=== PATIENT | female | born 1960 | race Caucasian/White ===

== ENCOUNTER → 2017-06-25 16:41 | Outpatient (CLI) | payer OTHER, SELFPAY ==
--- NOTE | 2017-06-25 16:46 | RAD_ITS ---
STUDY: X-RAY CHEST REASON FOR EXAM: Female, 57 years old. Shortness of breath TECHNIQUE: 2 views COMPARISON: None. FINDINGS: The lungs are clear and expanded. There is no demonstrated pleural abnormality. Normal size heart. Normal mediastinum and dave. Normal visualized pulmonary arteries. Normal visualized aortic arch and descending thoracic aorta. Mild degenerative changes of the thoracic and upper lumbar cervical spine remains. Plates and screws are in the lower cervical spine. Normal visualized ribs, clavicles, and shoulders. There is no demonstrated abnormality of the visualized soft tissue structures of the upper abdomen. RAD/Chest PA and Lateral IMPRESSION: No acute findings in the lungs Electronically Signed: Julian Guzman, at 1:46 EDT Tel , Service support ,
== END ==
PROVIDERS: Family Provider Family Medicine; PCP Family Medicine; Visit Provider Family Medicine
DX: R06.02 Shortness of breath (principal)
CPT/HCPCS: 71046

== ENCOUNTER → 2019-05-01 09:20 | Outpatient (CLI) | payer OTHER, SELFPAY ==
[2019-05-01 10:52] LABS: Anion Gap 5 (5-15); BUN 6 mg/dL (7-18); BUN/Creat Ratio 7.6 RATIO (10-20); Calcium,Total 8.6 mg/dL (8.5-10.1); Chloride 106 mmol/L (98-107); Cholesterol 100 mg/dL (200); Creatinine, Serum 0.79 mg/dL (0.55-1.02); EST Glomerular Filtration Rate 79 mL/min (>60); Est Glom Filt Rate - Afr Amer 96 mL/min (>60); Glucose 70 mg/dL (74-106); High Density Lipoprotein 68 mg/dL; Potassium 3.6 mmol/L (3.5-5.1); Sodium Level 142 mmol/L (136-145); Triglycerides 60 mg/dL; Very Low Density Lipoprotein 12 mg/dL (5-40)
[2019-05-01 10:56] LABS: Vitamin D,25 Hydroxy 13.5 ng/mL (29.95-100.01)
== END ==
PROVIDERS: PCP Family Medicine; Referring Provider Family Medicine; Visit Provider Family Medicine
DX: Z00.00 Encounter for general adult medical examination without abnormal findings (principal)
CPT/HCPCS: 36415; 80048; 80061; 82306

== ENCOUNTER → 2019-06-18 16:46 | Outpatient (CLI) | payer OTHER, SELFPAY ==
--- NOTE | 2019-06-18 16:56 | US_ITS ---
STUDY: SUPERFICIAL ULTRASOUND - LEFT BUTTOCK REGION REASON FOR EXAM: Female, 59 years old. LT BUTTOCK LUMP/MASS X 2 WEEKS WITH PAIN TECHNIQUE: A superficial ultrasound was performed with real-time and static medeiros-scale imaging. COMPARISON: None. FINDINGS: Numerous images of the left buttock region were acquired. The subcutaneous and intramuscular tissues are diffusely edematous and appears with increased echogenicity on this study. In the superficial muscle fibers of the left buttock/junction with the subcutaneous fat and ill-defined somewhat rounded complex region is present measuring 3.2 x 2.9 x 1.6 cm. This focus is somewhat hypoechoic to the surrounding parenchyma. This is compatible with a complex abscess or intramuscular edema with swelling. The process does not appear to be liquefied on this exam. A small sinus tract is seen leading from the subcutaneous fat into the collection. US/Ext Non Vasc Limited/Soft Tiss IMPRESSION: 1. 3.2 x 2.9 x 1.6 cm complex abscess of the subcutaneous/intramuscular junction of the left buttock. Electronically Signed: Lane Avila MD at 18:04 EST , Service support ,
== END ==
PROVIDERS: PCP Family Medicine; Referring Provider Family Medicine; Visit Provider Family Medicine
DX: R22.9 Localized swelling, mass and lump, unspecified (principal)
CPT/HCPCS: 76882

== ENCOUNTER → 2019-06-19 08:22 | Outpatient (CLI) | payer OTHER, SELFPAY ==
--- NOTE | 2019-06-19 08:23 | CT_ITS ---
STUDY: CT PELVIS WITH CONTRAST REASON FOR EXAM: Female, 59 years old. LEFT BUTTOCK ABSCESS/MASS ON US. Prev tubal ligation. RADIATION DOSAGE (If Supplied By Facility): CTDIvol = ( 9.97 ) mGy, DLP = ( 224.33 ) mGycm TECHNIQUE: Transaxial imaging of the pelvis was performed with oral contrast. Oral and amp; IV Gastrografin and amp; 100mL Isovue-300 was administered intravenously. Individualized dose optimization techniques were used for this CT. COMPARISON: None. FINDINGS: The visualized liver, gallbladder, and head of the pancreas are unremarkable. The common bile duct measures up to 8.7 mm diameter, but notably tapers as it passes through the pancreatic head. The central pancreatic duct diameter is 2.9 mm. The adrenal glands are not included in the [id number]. The visualized lower poles of the bilateral kidneys are unremarkable. Nearly empty urinary bladder. Normal visualized small intestine. Normal caliber of the visualized colon. There is an irregular, almost C-shaped marginally enhancing 6.7 x 1.35 x 3.1 cm area of inflammatory change in the medial tissues of the left buttock, passing along the medial margin of the gluteus muscles and extending along the lateral margin of the left pubococcygeus. This contains minimal fluid and gas in its anteriorly. This may or may not communicate with a second C-shaped, rim-enhancing 4.65 x 5.85 x 1.5 cm gas and fluid collection consistent with an abscess in the left perirectal soft tissues. There is some associated thickening of the left lateral rectal wall. The superior extent of this abscess is a gas-filled area along the posterior inferior margin of the thick-walled distal sigmoid colon. There are small gas bubbles in the tissues along the posterior margin of the mid to distal sigmoid, suggesting diverticula. Well defined 2.9 x 5.95 x 2.5 cm fluid-filled structure in the left posterior pelvis extending above the level of the sigmoid does not show rim enhancement or contain gas, and may be an ovarian cyst or other retroperitoneal fluid collection such as a lymphocele or seroma There is no pelvic lymphadenopathy. There is atrophy of the uterus. Normal visualized pelvic arteries. Normal anterior abdominal wall. There are diffuse degenerative changes of the visualized lumbar spine, including virtual osseous fusion at the L5-S1 endplates and facet joints. CT/Pelvis WITH IV Contrast IMPRESSION: 1. Sigmoid diverticulosis with probable acute diverticulitis. Extending from the posterior margin of the sigmoid colon along the left side of the mildly thick-walled rectum. There is a C-shaped, rim-enhancing 5.5 cm abscess. This may communicate with an irregular shaped, elongated 6.7 cm rim-enhancing area of inflammatory change with minimal fluid extending along the lateral margin of the left pubococcygeus and medial margin of left gluteus muscle into the deep subcutaneous tissues of the medial left buttock. 2. Well-defined additional 5 cm fluid-filled structure in the left posterior pelvis extending above the level of the sigmoid does not show rim enhancement nor contain gas, and may be a cyst of ovarian origin versus other fluid collection, such as a seroma or lymphocele. Further extension of the abscess is not excluded, however. 2. Multilevel degenerative changes of the spine. Electronically Signed: Philippe Cleaning MD at 10:05 EST , Service support ,
== END ==
PROVIDERS: PCP Family Medicine; Referring Provider Surgery; Visit Provider Surgery
DX: L02.31 Cutaneous abscess of buttock (principal)
CPT/HCPCS: 72193; Q9967

== ENCOUNTER → 2019-06-20 09:13 | Outpatient (CLI) | payer OTHER, SELFPAY ==
[2019-06-20 08:48] VITALS: BMI 23.3
--- NOTE | 2019-06-20 09:14 | CT_ITS ---
STUDY: CT PELVIS WITH CONTRAST REASON FOR EXAM: Female, [address] PELVIS, LEFT HYDRONEPHROSIS -- RECTAL CONTRAST IMAGES ALSO INCLUDED RADIATION DOSAGE (If Supplied By Facility): CTDIvol = ( 15.41 ) mGy, DLP = ( 1250.85 ) mGycm TECHNIQUE: Transaxial imaging of the pelvis was performed without oral contrast. IV 100mL Isovue-300 was administered intravenously. Multiplanar coronal and sagittal images were reformatted. Individualized dose optimization techniques were used for this CT. COMPARISON: CT pelvis with oral and IV contrast June 19, 2019 FINDINGS: The liver is enlarged, inferior right lobe extending 7 cm below the level of the iliac crest. The patent portal vein diameter is 15 mm. Mildly distended gallbladder, with layering density that likely reflects vicarious excretion of previously injected IV contrast. The common bile duct diameter 7 mm. Normal right kidney. There is [id number] distention of the left upper urinary tract down to the low pelvis. The urinary bladder is opacified by excreted contrast, but nearly empty. There is atrophy of the uterus. Normal visualized small intestine. Normal caliber of the visualized colon. Again seen is an irregular, almost C-shaped marginally enhancing 6.7 x 1.35 x 3.1 cm area of inflammatory change in the medial tissues of the left buttock, passing along the medial margin of the gluteus muscles and along the lateral margin of the left pubococcygeus muscle. This contains minimal fluid and gas anteriorly. This may or may not communicate with a second C-shaped, rim-enhancing 4.65 x 5.85 x 1.5 cm abscess collection in the left perirectal soft tissues. The abscess is again seen along the thick-walled mid to distal sigmoid colon. There is sigmoid diverticulosis, the abscess likely reflecting pericolonic extension of a diverticular perforation. Well defined 2.9 x 5.95 x 2.5 cm fluid-filled structure without gas or peripheral enhancement seen just above the abscess in the left posterior pelvis, extending above the level of the sigmoid. This may be a separate structure, such as an ovarian cyst or other retroperitoneal fluid collection, likely a lymphocele or seroma. There is no pelvic lymphadenopathy. Normal visualized pelvic arteries. Normal anterior abdominal wall. There are diffuse degenerative changes of the visualized lumbar spine. CT/Pelvis WITH IV Contrast IMPRESSION: 1. Sigmoid diverticulosis with probable acute diverticulitis and perforation at the mid to distal sigmoid with an elongated, nearly C-shaped 5.85 cm abscess extending into the left perirectal soft tissues. No oral contrast is seen in the abscess. 2. The abscess may communicate with an irregular, C-shaped area of inflammatory change with minimal anterior fluid that extends along the lateral margin of the left pubococcygeus and medial margin of the left gluteus muscle into the deep subcutaneous tissues tissues of the medial left buttock. 3. Also again seen is a 5.95 cm fluid-filled structure of indeterminate etiology in the left posterior pelvis above the abscess. 4. There is mild to moderate left hydroureteronephrosis down to the level of pelvic abscess, likely reflecting some spasm or other cause of partial obstruction at the distal ureter. 5. Hepatomegaly, the right lobe extending 7 cm below the level of the iliac crests. Electronically Signed: Philippe Cleaning MD at 10:29 EST , Service support ,
[2019-06-20 10:54] LABS: Absolute Lymphocyte Count 1.19 X10^3/uL (0.83-4.51); Absolute Neutrophil Count 8.7 X10^3/uL (2.0-7.7); Basophil# 0.05 X10^3/uL; Basophil% 0.5 % (0-1); Eosinophils% 0.9 % (0-5); Hematocrit 51.1 % (37-47); Hemoglobin 16.7 g/dL (12.0-15.0); Lymphocyte # 1.19 X10^3/ul (4.0); Lymphocyte % 11.2 % (19-41); Mean Corp Hgb Conc 32.7 g/dL (32-36); Mean Corpuscular Hgb 35.4 pg (27.0-32.0); Mean Corpuscular Volume 108.3 fL (81-99); Mean Platelet Vol. 8.8 fl (6.2-12.0); Monocyte# 0.62 X10^3/uL; Monocyte% 5.8 % (0-10); NRBC Flagged by Analyzer 0 % (0-5); Neutrophil # 8.68 X10^3/uL (2.7-7.7); Neutrophil % 81.3 % (47-70); Platelet Count 447 K/mm3 (150-450); RBC Distribution Width CV 14.2 % (11.6-14.6); Red Blood Count 4.72 M/mm3 (4.2-5.4); White Blood Count 10.7 K/mm3 (4.4-11.0)
== END ==
PROVIDERS: PCP Family Medicine; Referring Provider Surgery; Visit Provider Surgery
DX: N73.9 Female pelvic inflammatory disease, unspecified (principal)
CPT/HCPCS: 36415; 72193; 85025; Q9967

== ENCOUNTER → 2019-06-30 07:57 | Outpatient (CLI) | payer OTHER, SELFPAY ==
[2019-06-20 08:48] VITALS: BMI 23.3
--- NOTE | 2019-06-30 07:58 | CT_ITS ---
STUDY: CT ABDOMEN AND PELVIS WITHOUT CONTRAST REASON FOR EXAM: Female, 59 years old. CHECK PELVIC ABSCESS DRAIN RADIATION DOSAGE (If Supplied By Facility): CTDIvol = ( 6.07 ) mGy, DLP = ( 257.88 ) mGycm TECHNIQUE: Transaxial images were obtained from the dome of the diaphragm to the symphysis pubis without oral contrast, and without intravenous contrast. Sagittal and coronal images were reconstructed. Individualized dose optimization techniques were used for this CT. COMPARISON: Comparison is made with prior CT scan the pelvis dated June 20, 2019. FINDINGS: The visualized lung bases are unremarkable. The visualized portions of the heart are within normal limits. Normal liver. Normal gallbladder and extrahepatic biliary system. Normal spleen. Normal pancreas. Normal bilateral adrenal glands. Normal right kidney. Normal left kidney. Normal visualized stomach. Normal small intestine. There are multiple colonic diverticula consistent with diverticulosis. The appendix is visualized and appears normal. There is scattered atherosclerotic calcification of the abdominal aorta, without a demonstrated aneurysm. Normal inferior vena cava. Normal retroperitoneum. Normal urinary bladder. A drainage catheter is seen in the left side of the pelvis. The previously seen fluid collection anterior to the rectum as well as the fluid collection surrounding the sigmoid colon has resolved. Normal abdominal wall. There are diffuse degenerative changes of the visualized lumbar spine. CT/Abdomen/Pelvis without Cont IMPRESSION: Successful percutaneous drainage of the pelvic fluid collections as described. Persistent sigmoid diverticulosis. Electronically Signed: Claudio El, at 8:58 EDT , Service support ,
== END ==
PROVIDERS: PCP Family Medicine; Referring Provider Surgery; Visit Provider Surgery
DX: N73.9 Female pelvic inflammatory disease, unspecified (principal)
CPT/HCPCS: 74176

== ENCOUNTER → 2019-07-28 14:43 | Outpatient (CLI) | payer OTHER, SELFPAY ==
[2019-07-01 13:50] VITALS: BMI 23.3
--- NOTE | 2019-07-28 14:45 | CT_ITS ---
STUDY: CT ABDOMEN AND PELVIS WITH CONTRAST REASON FOR EXAM: Female, 59 years old. Rectal and pelvic pain, recent rectal abscess, RADIATION DOSAGE (If Supplied By Facility): CTDIvol = ( 10.85 ) mGy, DLP = ( 255 ) mGycm TECHNIQUE: Transaxial images were obtained from the dome of the diaphragm to the symphysis pubis with oral contrast. Oral and amp;amp; IV Rectal gastro and amp;amp; 75mL Isovue-370 was administered. Sagittal and coronal images were reconstructed. Individualized dose optimization techniques were used for this CT. COMPARISON: Comparison is made with prior examination dated June 30, 2019. FINDINGS: The visualized lung bases are unremarkable. The visualized portions of the heart are within normal limits. There is decreased attenuation of the liver consistent with steatosis. Hepatomegaly. Normal gallbladder and extrahepatic biliary system. Normal spleen. Normal pancreas. Normal bilateral adrenal glands. Normal right kidney. Normal left kidney. Normal visualized stomach. Normal small intestine. Large amount of fecal material is seen in the left colon. Scattered sigmoid diverticulosis. There now is evidence of increased markings in the surrounding perisigmoid fat suggestive of a mild degree of the diverticulitis. There is evidence of a 2.2 cm x 1.2 cm fluid collection along the medial mesenteric side of the sigmoid colon. A similar appearing fluid collection measuring 2.5 cm x 1.6 cm is seen in the prerectal space on the left side. Fluid as well as soft tissue density extends catheter down along the left pararectal wall into the soft tissues within the medial aspect of the left gluteus muscle. This extends to the overlying skin with thickening of the overlying skin on the left medial buttock. The appendix is visualized and appears normal. There is scattered atherosclerotic calcification of the abdominal aorta, without a demonstrated aneurysm. Normal inferior vena cava. Normal retroperitoneum. Normal urinary bladder. Normal abdominal wall. There are diffuse degenerative changes of the visualized lumbar spine. CT/Abdomen/Pelvis WITH Contrast IMPRESSION: The previously seen drainage catheter has been removed. 2. Fluid collections in the region of the sigmoid colon as well as the left perirectal space extending into the medial left gluteus muscle and overlying subcutaneous tissue with skin thickening as described. Mild degree of sigmoid diverticulitis. Large amount of fecal material is seen in the left hemicolon. Electronically Signed: Claudio El, at 15:52 EDT , Service support ,
[2019-07-28 15:05] LABS: CREATININE FINGERSTICK 0.9 mg/dL (0.55-1.02); EGFR FINGERSTICK > 60.0000 mL/min (>60)
== END ==
PROVIDERS: PCP Surgery; Referring Provider Surgery; Visit Provider Surgery
DX: N73.9 Female pelvic inflammatory disease, unspecified (principal)
CPT/HCPCS: 74177; Q9967; A4216

== ENCOUNTER 2022-08-08 11:13 | Emergency (ER) | payer OTHER, SELFPAY ==
[2022-08-08 11:13] VITALS: TEMP 35.9
[2022-08-08 11:14] VITALS: BP 105/90; BP 113/102; BP 137/93; BP 73/62; BP 79/66; BP 80/39; BP 86/39; PULSE 101; PULSE 102; PULSE 107; PULSE 131; PULSE 40; PULSE 46; PULSE 60; PULSE 63; PULSE 72; PULSE 80; PULSE 82; PULSE 84; PULSE 97; RESP 14; RESP 16; RESP 18; RESP 20; RESP 24; RESP 62; TEMP 35.5; O2SAT 68; O2SAT 73; O2SAT 78; O2SAT 81; O2SAT 83; O2SAT 93; O2SAT 95; O2SAT 96
--- NOTE | 2022-08-08 11:31 | EKG12_ITS ---
Test Reason : CODE Blood Pressure : / mmHG Vent. Rate : 078 BPM Atrial Rate : 000 BPM P-R Int : 000 ms QRS Dur : 134 ms QT Int : 340 ms P-R-T Axes : 000 244 085 degrees QTc Int : 387 ms Poor data quality, interpretation may be adversely affected Junctional rhythm Right bundle branch block Septal infarct Abnormal ECG Confirmed by SHERRI YAN, KLEVER ([id number]), assignment desk editor MAI WHITMAN ([id number]) on 08/10/2022 9:25:01 AM Referred By: GEORGE Confirmed By:KLEVER POLANCO MD
--- NOTE | 2022-08-08 11:50 | RAD_ITS ---
STUDY: X-RAY CHEST REASON FOR EXAM: Female, 62 years old. Dyspnea TECHNIQUE: Single AP portable view of the chest. COMPARISON: None. FINDINGS: An endotracheal tube is in situ. The tip is at 2.1 cm proximal to the monique. An orogastric tube is seen with the tip below the left hemidiaphragm. EKG electrodes are seen. Impression congestion and mild degree of CHF. There is no demonstrated pleural abnormality. There is mild cardiac enlargement. Normal mediastinum and dave. Normal visualized pulmonary arteries. Normal visualized aortic arch and descending thoracic aorta. There are degenerative changes of the visualized thoracic spine. Normal visualized ribs, clavicles, and shoulders. There is no demonstrated abnormality of the visualized soft tissue structures of the upper abdomen. RAD/Chest 1 View (Portable) IMPRESSION: The tip of the endotracheal tube is at 2.1 cm proximal to the monique. Mild cardiomegaly and the CHF. Electronically Signed: Claudio El MD at 12:19 EDT ,
--- NOTE | 2022-08-08 12:05 | EKG12_ITS ---
Test Reason : RE CHECK Blood Pressure : / mmHG Vent. Rate : 047 BPM Atrial Rate : 000 BPM P-R Int : 000 ms QRS Dur : 084 ms QT Int : 502 ms P-R-T Axes : 000 -63 020 degrees QTc Int : 444 ms Junctional rhythm Left axis deviation Low voltage QRS Septal infarct , age undetermined Abnormal ECG Confirmed by SHERRI YAN, KLEVER ([id number]), managing editor MAI WHITMAN ([id number]) on 08/10/2022 9:21:38 AM Referred By: Confirmed By:KLEVER POLANCO MD
[2022-08-08 12:22] LABS: Anion Gap 13 (5-15); BUN 8 mg/dL (7-18); BUN/Creat Ratio 8.7 RATIO (10-20); Calcium,Total 7.7 mg/dL (8.5-10.1); Chloride 106 mmol/L (98-107); Creatinine, Serum 0.92 mg/dL (0.55-1.02); EST Glomerular Filtration Rate 66 mL/min (>60); Est Glom Filt Rate - Afr Amer 79 mL/min (>60); Glucose 359 mg/dL (74-106); Potassium 2.6 mmol/L (3.5-5.1); Sodium Level 144 mmol/L (136-145)
--- NOTE | 2022-08-08 12:23 | ED.RN ---
FAMILY HAS MADE A DECISION TO STOP ALL MEDICATIONS , NO CPR TO BE RESUMED
[2022-08-08 12:30] VITALS: PULSE 51; RESP 14; RESP 22; O2SAT 77
--- NOTE | 2022-08-08 12:30 | EX.ED.CRITCA ---
HPI History of Present Illness Chief Complaint: CPR Informant: EMS Limited: coma Onset/Context/Timing Onset: Today Context: Sudden Onset Timing: Continuous Quality: Unresponsive Location: Generalized Narrative Narrative: Patient presents unresponsive. Patient apparently collapsed suddenly this morning. Family started CPR immediately. Family called EMS immediately. EMS took over CPR upon their arrival. EMS continued CPR. EMS defibrillated the patient multiple times as the patient was in ventricular fibrillation. EMS administered 9 doses of epinephrine, 1 dose of bicarb, and 2 doses of amiodarone. EMS intubated the patient with an endotracheal tube. Upon arrival to the emergency department, patient was still pulseless and unresponsive. [facility] Medical History (Updated 08/08/22 @ 14:[address] Bernardino Fulton, DO) Asthma Allergy/AdvReac Type Severity Reaction Status Date / Time Unable to Assess Allergy Verified 08/08/22 12:43 Surgical History History of colostomy reversal Hx of cervical spinal arthrodesis Hx of colostomy Social History Smoking Status: Current every day smoker tobacco type: cigarettes ROS ROS ED Review of Systems ROS Unobtainable: due to endotracheal tube, due to mental condition and due to mental status EXAM Physical Exam Const Vital Signs: 08/08/22 11:14 08/08/22 11:13 08/08/22 13:10 Temperature 96.6 F L Temperature [2] 96 F L Temperature Source Temporal Pulse Rate 46 L Pulse Rate [10] 101 H Pulse Rate [12] 80 Pulse Rate [14] 102 H Pulse Rate [15] 102 H Pulse Rate [19] 60 Pulse Rate [21] 63 Pulse Rate [23] 40 L Pulse Rate [25] 46 L Pulse Rate [2] 102 H Pulse Rate [3] 107 H Pulse Rate [4] 131 H Pulse Rate [5] 72 Pulse Rate [6] 97 Pulse Rate [7] 84 Pulse Rate [8] 80 Pulse Rate [9] 82 Respiratory Rate 14 Respiratory Rate [10] 16 Respiratory Rate [15] 20 H Respiratory Rate [20] 62 H Respiratory Rate [21] 14 Respiratory Rate [3] 24 H Respiratory Rate [5] 18 Respiratory Rate [6] 18 Respiratory Rate [7] 18 Respiratory Rate [8] 18 Respiratory Rate [9] 16 Respiratory Pattern Blood Pressure 76/48 L Blood Pressure [15] 79/66 L Blood Pressure [16] 73/62 L Blood Pressure [20] 105/90 H Blood Pressure [21] 137/93 H Blood Pressure [23] 80/39 L Blood Pressure [4] 113/102 H Blood Pressure [5] 113/102 H Blood Pressure [6] 86/39 L Blood Pressure [7] 86/39 L Blood Pressure [8] 86/39 L Blood Pressure [9] 86/39 L Blood Pressure Mean 57 Pulse Ox 83 91 Oxygen Delivery Method Room Air Oxygen Flow Rate (L/min) 15 Fraction of Inspired Oxygen (FIO2) 08/08/22 12:30 Temperature Temperature [2] Temperature Source Pulse Rate 51 L Pulse Rate [10] Pulse Rate [12] Pulse Rate [14] Pulse Rate [15] Pulse Rate [19] Pulse Rate [21] Pulse Rate [23] Pulse Rate [25] Pulse Rate [2] Pulse Rate [3] Pulse Rate [4] Pulse Rate [5] Pulse Rate [6] Pulse Rate [7] Pulse Rate [8] Pulse Rate [9] Respiratory Rate 22 H Respiratory Rate [10] Respiratory Rate [15] Respiratory Rate [20] Respiratory Rate [21] Respiratory Rate [3] Respiratory Rate [5] Respiratory Rate [6] Respiratory Rate [7] Respiratory Rate [8] Respiratory Rate [9] Respiratory Pattern Normal Blood Pressure Blood Pressure [15] Blood Pressure [16] Blood Pressure [20] Blood Pressure [21] Blood Pressure [23] Blood Pressure [4] Blood Pressure [5] Blood Pressure [6] Blood Pressure [7] Blood Pressure [8] Blood Pressure [9] Blood Pressure Mean Pulse Ox 77 Oxygen Delivery Method Oxygen Flow Rate (L/min) Fraction of Inspired Oxygen (FIO2) 100 Positive well developed General Appearance ED: well developed HEENT normocephalic and atraumatic Neck supple and no JVD Cardio regular rhythm Rate: tachycardic GI Inspection: abdominal distention Palpation: soft Neuro Sensorium / Orientation: lethargic and stuporous Skin General Skin Exam: Negative for jaundice Lesions: no lesions Rashes: no rashes MDM MDM MDM Narrative Medical decision making narrative: Differential diagnose includes cardiac dysrhythmia, cardiac ischemia, pulmonary embolism, hyperkalemia, cardiac tamponade, and electrolyte abnormality. EKG will be obtained to assess for cardiac dysrhythmia and cardiac ischemia. Chest x-ray will be obtained to assess for pneumonia. Basic metabolic profile will be obtained to assess for electrolyte abnormality and renal function. CBC will be obtained to assess for leukocytosis and anemia. PT with INR and PTT will be obtained to assess for coagulopathy. High-sensitivity troponin will be obtained to assess for cardiac ischemia. Family was brought into the bedside to help with relating the patient's wishes regarding ongoing CPR, ventilator, pressors, and antiarrhythmic medications. Family wanted to discuss this amongst themselves. After the family discussed this amongst themselves, they stated that the patient had a DNR papers signed at [facility] when she was admitted there. states that the patient did not want to be put on a ventilator and had a living will which stated this. states that the patient did not want any measures to prolong her life if her quality of life was not her normal quality of life. I did advise the family that if she were to survive the initial cardiac arrest, she would be admitted to the hospital on a ventilator with vasopressors and antiarrhythmics. I advised him that this would require a central line to be placed. I advised him of the risks associated with this.. At this point, family did not want any further interventions to be done. Family is agreeable to stopping the vasopressors and antiarrhythmics. Family will be brought to the bedside to be with the patient. Family wants the patient to be extubated. Patient will be extubated. Family will be at the bedside to be with the patient when she passes. Family is agreeable with this plan. History & Record Review Discussion w/independent historian: EMS personnel and Family Lab Data Attestation: I reviewed the patient's lab results. Lab results narrative: BMP was reviewed and revealed a potassium of 2.6. Glucose was elevated at 359. Labs: Laboratory Results - last 24 hr 08/08/22 08/08/22 08/08/22 11:15 11:15 11:15 WBC RBC Hgb Hct MCV MCH MCHC RDW Std Deviation RDW Coeff of Jai Plt Count MPV Neut % (Auto) PT 16.0 H INR 1.3 APTT 40.6 H Sodium 144 Potassium 2.6 L* Chloride 106 Carbon Dioxide 25.0 Anion Gap 13 BUN 8 Creatinine 0.92 Est GFR (MDRD) Af Amer 79 Est GFR (MDRD) Non-Af 66 BUN/Creatinine Ratio 8.7 L Glucose 359 H Calcium 7.7 L Troponin I High Sens 78 H 08/08/22 12:50 WBC 7.8 RBC 4.12 L Hgb 14.6 Hct 46.8 MCV 113.6 H MCH 35.4 H MCHC 31.2 L RDW Std Deviation 68.8 H RDW Coeff of Jai 16.1 H Plt Count 52 L MPV 10.4 Neut % (Auto) Not Reportable PT INR APTT Sodium Potassium Chloride Carbon Dioxide Anion Gap BUN Creatinine Est GFR (MDRD) Af Amer Est GFR (MDRD) Non-Af BUN/Creatinine Ratio Glucose Calcium Troponin I High Sens Radiography Diagnostic Testing: Clinical Impression(s) from Imaging Studies Chest X-Ray 08/08/22 11:50 IMPRESSION: The tip of the endotracheal tube is at 2.1 cm proximal to the monique. Mild cardiomegaly and the CHF. Electronically Signed: Claudio El MD at 12:19 EDT , Portable chest x-ray was obtained. There is 1 view. On my independent interpretation, there is cardiomegaly and congestive heart failure. There is no infiltrate. There is no pneumothorax. Endotracheal tube is 2 cm proximal to the monique. Radiologist also interpreted the x-ray and agrees. EKG Initial EKG: Attestation: I personally reviewed and interpreted this EKG as follows: Interpretation: Junctional Comments: EKG was obtained. On my interpretation, there is a junctional rhythm with a wide-complex rhythm. QRS interval was 134 ms. QTc interval was normal at 387 ms. There are nonspecific ST-T wave changes noted. Management Discussion w/another healthcare provider: garbage depot worker/Case management Treatment and Re-Evaluation Narrative: CPR was continued here in the emergency department. ACLS protocols were followed. Patient was given further doses of epinephrine, 1 further dose of sodium bicarbonate, and was started on an amiodarone drip. Patient was defibrillated several times. Patient's blood pressure remained low. Patient was started on a Levophed drip as well. After discussion with the family, the amiodarone drip and Levophed drip was discontinued. The patient was extubated per family's wishes. Family was allowed to be with the patient. Patient became more bradycardic and was pronounced at 1326. Critical Care Time Critical Care Time: Yes Critical care time (excluding procedures): 75-104 minutes (77), Including time spent:, Discussing w/Patient &/or Family/Tire Recapper and Performing Direct Patient Care at Bedside Discharge Plan Triage Chief Complaint: CPR ED Provider: Bernardino Fulton Dx/Rx/DC Orders Clinical Impression: Cardiopulmonary arrest, Respiratory failure, Hypokalemia Primary Care Provider: Irvin Hernandez Referrals: Irvin Hernandez MD [Primary Care Provider] - Disposition Disposition:
[2022-08-08] MEDS: Morphine 4 MG/ML Syringe 2 MG IV (12:38)
[2022-08-08] MEDS: LORazepam 2 MG/ML Syringe 0.5 MG IV (12:38)
[2022-08-08 12:57] LABS: Hematocrit 46.8 % (37-47); Hemoglobin 14.6 g/dL (12.0-15.0); Mean Corp Hgb Conc 31.2 g/dL (32-36); Mean Corpuscular Hgb 35.4 pg (27.0-32.0); Mean Corpuscular Volume 113.6 fL (81-99); Mean Platelet Vol. 10.4 fl (6.2-12.0); POSITIVE COUNT YES; POSITIVE MORPHOLOGY YES; Platelet Count 52 K/mm3 (150-450); RBC Distribution Width CV 16.1 % (11.6-14.6); RBC Distribution Width SD 68.8 fl (35.1-43.9); Red Blood Count 4.12 M/mm3 (4.2-5.4); White Blood Count 7.8 K/mm3 (4.4-11.0)
[2022-08-08 13:00] LABS: International Normalized Ratio 1.3
[2022-08-08 13:00] LABS: Differential Indicated MANUAL DIFF
[2022-08-08 13:01] LABS: Partial Thromboplast Time 40.6 Seconds (24.1-36.2)
--- NOTE | 2022-08-08 13:05 | ED.RN ---
SEE CODE BLUE CHART FOR MEDICATIONS DURING CODE
--- NOTE | 2022-08-08 13:05 | ED.RN ---
PER FAMILY REQUEST PT IS EXTUBATED. MONITOR TO HOSPICE MODE
[2022-08-08 13:10] VITALS: BP 76/48; PULSE 46; RESP 14; O2SAT 91
[2022-08-08] MEDS: 0.9% Normal Saline 1,000 ML 1000 ML IV (13:15)
--- NOTE | 2022-08-08 13:18 | CPS ---
Pt was intubated by squad with a size 6
--- NOTE | 2022-08-08 13:29 | ED.RN ---
1300 TOTAL VOLUME OF NS INFUSED 2L
--- NOTE | 2022-08-08 13:31 | ED.RN ---
at 1326 pt with no pulse,no spontaneous respirations. this rn and stefano rn at bedside. PT FAMILY AWARE. RADHA AT BEDSIDE. PT PRONOUNCED AT 1326. DR VAZQUZE AT BEDSIDE
[2022-08-08 13:51] LABS: Troponin-I HS (w/2H Reflex) 78 pg/mL (3.0-54.0)
[2022-08-08 14:01] LABS: Eosinophil 1 % (0-5); Lymphocyte 64 % (19-41); Monocyte 5 % (0-10); Myelocyte 1 % (0-0); Neutrophil-Band 2 % (0-5); Neutrophil-Segmented 27 % (47-70); Total Cells Counted 100 (MANUAL DIFF)
[2022-08-08 14:02] LABS: Anisocytosis 2+; Macrocytosis 1+; Microcytosis 1+; Platelet Estimate SLT (ADEQ)
[2022-08-08 14:03] LABS: Absolute Lymphocyte Count 4.99 X10^3/uL (0.83-4.51); Absolute Neutrophil Count 2.3 X10^3/uL (2.0-7.7)
--- NOTE | 2022-08-08 14:19 | CHAPLAIN ---
Type of Pastoral Visit ___ Initial Visit ___ Follow-up Visit ___ On-call Visit ___ General Patient Visit ___ Spiritual Assessment ___ Family Conference ___ Bereavement ___ Rapid Response _x__ Code Blue ___ Other (describe below) Pastoral Care Referral From ___ Patient ___ Family ___ Nurse ___ Physician ___ Tube Skiver ___ Glass Processing Worker _x__ Other (describe below) Sacrament/Intervention _x__ Active listening ___ Anointing ___ Religious _x__ Bereavement ___ Communion ___ Connie exploration ___ _x__ Life review _x__ Prayer ___ Reconciliation ___ Sacrament of Sick _x__ Supportive presence ___ Wedding ___ Other (describe below) Pastoral Comments responded to code blue in ED; SW also responded; patient brought in and spouse and a close friend came in later; offered presence and support to spouse and friend; later a NEGAR came into the hospital; only the spouse went into the room on two occasions and was escorted by this foundry tender; ongoing communication provided for spouse and staff; suggestions for making phone calls or seeking additional support for family were given; spouse stated that he and the patient were not zoroastrianism people and did not seek spiritual care; spouse and friend did welcome emotional support; this foundry tender and spouse were in the room when patient passed and a time of silence was given with medical team who entered room to confirm time of ; was present with family members until they left the building shortly after
[2022-08-08 14:27] LABS: Reflex Troponin-HS? (from REC) Y
--- NOTE | 2022-08-08 22:21 | CM.ED ---
Social Work Social workers Joanne Obrien and this freelance writer responded to Cielo Bartholomew in the ED. [facility] Bilingual Interpreter also present. Patient's present in the department, along with a neighbor who reports to have assisted the with providing CPR to the patient until EMS arrived to the home. Patient's [id number] in the ED for another matter and saw the Avni. Avni apprise his sister/patient's NEGAR of what what happening. insulation worker furnace installer offered emotional support, encouragement, and reflection, collaborating with hospital signaling design engineer for support to the family. Through conversation it was learned that patient was to for over 40 years. Patient has one biological son, and a stepdaughter. Avni declined, several times, any assist to notify children of the patient's condition and ED presentation. Gently explored whether presence of children may be of help and support to Avni, and even be helpfu to the children to know of the seriousness of this situation, but Avni declined giving reasons of the son being on the road driving and the daughter traveling between [place] for work. Avni reports patient has a POAHC and a Living will, and that patient would not want to be on a ventilator. Avni reported patient recently brought up the topic of end of life, and not wanting to be hooked to a machine. Avni tearful intermittently throughout ED visit, and expressed that having a hard time making decision as to whether to continue medical efforts to revive patient. Gently discussed with Avni, that if Living Will is in place and patient had made wishes known, then Avni is not making decision on own but following patient's wishes regarding care and treatment. Acknowledged how difficult the decision can still be to decide on course of treatment, even knowing a loved one's wishes. Physician met with Avni, the neighbor, and patient's [id number] with social work and signaling design engineer present. Physician able to discuss efforts made with CPR and multiple medications given. After Avni had time to process this information, and discussed repeatedly patient had previously stated desire not to have intubation or ventilation, Avni was able to communicate to honor patient's wishes for no ventilation and switch to comfort care measures. Much emotional support offered this date. -NEETA Merino, PUFF IRONER
[2022-08-09 13:17] LABS: Pathologist Review Reviewed
== END 2022-08-08 23:59 ==
PROVIDERS: Emergency Provider Emergency Medicine; PCP Family Medicine; Visit Provider Emergency Medicine
DX: I46.9 Cardiac arrest, cause unspecified (principal); J96.90 Respiratory failure, unspecified, unspecified whether with hypoxia or hypercapnia; I49.01 Ventricular fibrillation; E87.6 Hypokalemia; F17.210 Nicotine dependence, cigarettes, uncomplicated
CPT/HCPCS: 71045; 80048; 84484; 85025; 85610; 85730; 92950; 93005; 94002; 99283; J7030; J7050; A4216